=== PATIENT | male | born 1935 | race Caucasian/White ===

== ENCOUNTER 2017-04-11 07:30 | Inpatient (IN) | payer MEDICARE, OTHER ==
--- NOTE | 2017-04-27 11:30 | HP ---
AMENDED REPORT NOW INCLUDES COSIGNER DESIGNATION - ESIGNED BEFORE ADJUSTMENT PREOPERATIVE HISTORY AND PHYSICAL: DATE OF SURGERY: 05/09/17. DATE OF OFFICE VISIT: 04/26/17. ATTENDING PHYSICIAN: Dr. Sweetie Watson * (DICTATED BY MYA CHANCE) PROCEDURE: Right total shoulder reverse. CHIEF COMPLAINT: Right shoulder pain. HISTORY OF PRESENT ILLNESS: Baldemar is an 81-year-old male who presents to the clinic for right shoulder pain and limited range of motion due to severe osteoarthritis. He has failed conservative measures to include NSAIDs, physical therapy, and cortisone injection, he has therefore agreed to undergo a right total shoulder reverse with Dr. Watson on 05/09/17. PAST MEDICAL HISTORY: Hypertension, hyperlipidemia, hypothyroidism and GERD. PAST SURGICAL HISTORY: Left total hip arthroplasty about 5 years ago, L2, L3, L4, L5 surgical decompression, TURP, carpal tunnel release 3 times, left total shoulder arthroplasty, a strep and staph infection in the spine in 2001 and 2004 , and melena removal from the skin. MEDICATION: 1. Amoxicillin 500 mg 4 tabs 1 hour before dental work or invasive GI or procedures. 2. Omeprazole 20 mg 1 by mouth daily. 3. Losartan potassium 50 mg by mouth daily. 4. Hydrochlorothiazide 12.5 mg 1 by mouth daily. 5. Levothyroxine 150 mcg 1 by mouth daily. 6. Zocor 40 mg 1 by mouth every night at bedtime. 7. Nasonex 15 mcg spray, 2 sprays each nostril twice a day. 8. Propranolol HCl ER 120 mg 1 by mouth every day. 9. Flomax 0.4 mg 1 by mouth every day. 10. Arlene-D 12 Hour Allergy and Congestion 60/120 mg 1 by mouth as needed. 10. Oxycodone 5 mg 1 to 3 tabs every 4 to 6 hours as needed for pain. ALLERGIES: LISINOPRIL. FAMILY HISTORY: His father at 57 from coronary thrombosis; mother at 76 of unknown cause. SOCIAL HISTORY: He drinks 3 to 4 times per week. He denies smoking or illegal drug use. REVIEW OF SYSTEMS: A 14-point review of systems was reviewed with the patient. Positive for current complaint and GERD, otherwise negative. Denies fevers, chills, night sweats, chest pain, or shortness of breath. Denies history of bleeding disorder. Denies history of DVT or PE. PHYSICAL EXAMINATION GENERAL: An 81-year-old well-developed, well-nourished male, in no acute distress. Alert and oriented x3. Appropriate mood and affect. VITAL SIGNS: Height 70, weight 197, pulse 56, blood pressure 135/62, temperature 97.5, and BMI 28.3. HEENT: Normocephalic, atraumatic. PERRLA. Throat clear. NECK: Supple. PULMONARY: Lungs are clear to auscultation bilaterally. No wheezing, rhonchi, or rales. CARDIO: Regular rate and rhythm. S1 and S2. No murmurs, gallops, or rubs. No edema. ABDOMEN: Positive bowel sounds, soft, nontender. NEURO: Alert and oriented x3. Cranial nerves grossly intact. Sensation is intact to light touch. MUSCULOSKELETAL: Right upper extremity, forward flexion 120, abduction 110, external rotation 20, internal rotation is 10. +4 to 5 strength, pain with rotator cuff testing, +2 radial pulses. Sensation is intact to light touch distally. DIAGNOSTIC STUDIES: X-rays of the right shoulder revealed advanced bone-on- bone arthritis. IMPRESSION: Right shoulder severe osteoarthritis. PLAN: The patient is scheduled to undergo a right total shoulder reverse with Dr. Watson on 05/09/17. For pre-op planning, a CT of the right shoulder will be performed. He will return to office in 10 to 14 days postop for followup and suture removal. Percocet was sent to the patient's pharmacy for postop pain management. MYA CHANCE [id number]/[facility] #: [id number] MTDLissette
[2017-05-08] MEDS ORDERED: Buffered Lidocaine 0.9% SYRIN* 5 ML/SYR SYRINGE INTRADERM ONE (10:45)
[2017-05-09] MEDS ORDERED: Ondansetron INJ* 2 MG/ML VIAL IV PRN ×2 (05:37→10:23)
[2017-05-09] MEDS ORDERED: fentaNYL* 50 MCG/ML 2 ML VIAL (100 MCG VIAL) IV PRN (05:37)
[2017-05-09] MEDS ORDERED: PROCHLORPERAZINE INJ 5 MG/ML 2 ML VIAL IV PRN (05:37)
[2017-05-09] MEDS ORDERED: Morphine INJ* 2 MG/ML 1 ML CARPUJECT IV PRN (05:37)
[2017-05-09] MEDS ORDERED: oxyCODONE/Acetamin 5/325 MG* TAB PO PRN ×2 (05:37→10:23)
[2017-05-09] MEDS ORDERED: Famotidine IV* 10 MG/ML 2 ML (20 mg) IV ONE (06:00)
[2017-05-09] MEDS ORDERED: Buffered Lidocaine 0.9% SYRIN* 5 ML/SYR SYRINGE ONE (06:07)
[2017-05-09] MEDS ORDERED: Famotidine IV* 10 MG/ML 2 ML (20 mg) ONE (06:07)
[2017-05-09] MEDS ORDERED: ceFAZolin 2 GM PREMIX (*) 2 GM/50 ML BAG IVPB ONE (06:07)
[2017-05-09] MEDS ORDERED: fentaNYL* 50 MCG/ML 2 ML VIAL (100 MCG VIAL) ONE (06:57)
[2017-05-09] MEDS ORDERED: KETAMINE HCL* 50 MG/ML 10 ML VIAL ONE (06:58)
[2017-05-09] MEDS ORDERED: Atracurium* 10 MG/ML 10 ML VIAL ONE (06:58)
[2017-05-09] MEDS ORDERED: Midazolam* 1 MG/ML 2 ML VIAL (2 MG) ONE (06:58)
[2017-05-09] MEDS ORDERED: Ondansetron INJ* 2 MG/ML VIAL ONE (08:28)
[2017-05-09] MEDS ORDERED: Dexamethasone IV* 4 MG/ML 1 ML (4 MG) ONE (08:28)
[2017-05-09] MEDS ORDERED: EPHEDrine (Pressors)* 50 MG/ML VIAL ONE (08:28)
[2017-05-09] MEDS ORDERED: Lidocaine 2% PF * 5 ML VIAL ONE (08:28)
[2017-05-09] MEDS ORDERED: Bupivacaine 0.25% SDV* 30 ML ONE (08:28)
[2017-05-09] MEDS ORDERED: Phenylephrine INJ* 10 MG/ML 1 ML VIAL (10 MG) ONE (08:28)
[2017-05-09] MEDS ORDERED: Propofol* 10 MG/ML 20 ML BTL IV PUSH ONE (08:28)
[2017-05-09] MEDS ORDERED: Neostigmine Methylsulfate* 2 MG/2 ML SYRINGE ONE (09:54)
[2017-05-09] MEDS ORDERED: Glycopyrrolate IV* 0.2 MG/ML 1 ML VIAL ONE (09:54)
[2017-05-09] MEDS ORDERED: Bisacodyl SUPP* 10 MG SUPP PR PRN (10:23)
[2017-05-09] MEDS ORDERED: Polyethylene Glycol 3350* 17 GM PACKET PO PRN (10:23)
[2017-05-09] MEDS ORDERED: Acetaminophen TAB* 325 MG PO PRN (10:23)
[2017-05-09] MEDS ORDERED: Temazepam CAP* 15 MG PO PRN (10:23)
[2017-05-09] MEDS ORDERED: Magnesium Hydroxide LIQ* 30 ML UDC PO PRN (10:23)
[2017-05-09] MEDS ORDERED: Morphine INJ* 2 MG/ML 1 ML SYRINGE (TWO MG - NEW SYRINGE VERSION) IV PRN (10:23)
[2017-05-09] MEDS ORDERED: oxyCODONE TAB* 5 MG TAB PO PRN (10:23)
[2017-05-09] MEDS ORDERED: diPHENhydraMINE IV* 50 MG/ML 1 ml VIAL (BENADRYL) IV PRN (10:23)
[2017-05-09] MEDS ORDERED: Fluticasone NASAL SPRAY 50MCG* 16 gm SPRAY BTL BOTH NARES PRN (10:30)
--- NOTE | 2017-05-09 11:00 | RAD ---
Indication: Right shoulder pain. 3 views of the right shoulder demonstrates bipolar right glenohumeral joint arthroplasty in satisfactory position. A small amount of air is noted. This is subcutaneous in nature. IMPRESSION: Bipolar right shoulder arthroplasty. No loosening is noted.
[2017-05-09] MEDS: ceFAZolin 1 GM VIAL(*) 1 GM in NS 0.9% 50 ML* 50 ML IVPB SCH (16:34)
[2017-05-09] MEDS ORDERED: Atorvastatin* 20 MG TAB PO SCH (17:00)
[2017-05-09] MEDS ORDERED: Tamsulosin CAP* 0.4 MG PO SCH (21:00)
[2017-05-10] MEDS: ceFAZolin 1 GM VIAL(*) 1 GM in NS 0.9% 50 ML* 50 ML IVPB SCH ×2 (00:08→08:07)
[2017-05-10] MEDS: oxyCODONE/Acetamin 5/325 MG* TAB PO PRN ×2 (04:42→09:12)
[2017-05-10 05:58] LABS: Hematocrit 38 % (42-52); Hemoglobin 13.3 g/dl (14.0-18.0)
[2017-05-10] MEDS ORDERED: Levothyroxine TAB* 150 MCG TAB PO SCH (06:00)
[2017-05-10 06:13] LABS: BUN/Creatinine Ratio 14.9 (8-20); Calcium 8.8 mg/dL (8.6-10.3); EGFR African American 79.3 (>60); EGFR Non-African American 61.7 (>60); Potassium 4.2 mmol/L (3.5-5.0)
[2017-05-10] MEDS ORDERED: Omeprazole CAP* 20 MG PO SCH (07:30)
[2017-05-10 08:01] VITALS: BP 147/73
[2017-05-10] MEDS ORDERED: Losartan TAB* 25 MG PO SCH (09:00)
[2017-05-10] MEDS ORDERED: Hydrochlorothiazide TAB* 25 MG PO SCH (09:00)
[2017-05-10] MEDS ORDERED: Folic Acid TAB* 1 MG PO SCH (09:00)
[2017-05-10] MEDS ORDERED: Propranolol LA CAP* 120 MG PO SCH (09:00)
[2017-05-10] MEDS ORDERED: Cyanocobalamin TAB* 500 MCG PO SCH (09:00)
[2017-05-10] MEDS ORDERED: Enoxaparin(*) 40 MG/0.4 ML SYR SUBCUT SCH (11:00)
--- NOTE | 2017-05-10 11:33 | PN ---
Progress Note - Progress Note Date of Service: 05/10/17 SOAP: Subjective: []Patient seen OOB in chair. Sling donned on right shoulder. Doing well, pain well managed. Ready to go home today. Denies SOB, CP or dizziness. Objective: [] Vital Signs Temp 98.1 F 05/10/17 07:45 Pulse 81 05/10/17 07:45 Resp 18 05/10/17 09:12 BP 147/73 05/10/17 07:45 Pulse Ox 96 05/10/17 08:00 Intake & Output 05/09/17 05/10/17 05/10/17 18:59 06:59 18:59 Intake Total 414 1271 1377 Output Total 1050 2100 325 Balance -636 -829 1052 Intake: IV Fluids 414 731 997 ABX - CEFAZOLIN 142 LR 364 589 997 NS 50ML, Cefazolin 2G 50 IVPB 60 ABX - CEFAZOLIN 60 Oral 540 320 Output: Hemovac Amount #1 300 150 125 Urine 750 1950 200 Other: Estimated Void Medium Other Amount Description These numbers confirmed via telephone by Regina Acuna # Voids 1 Laboratory Results - last 24 hr 05/10/17 05/10/17 05:34 05:34 Hgb 13.3 L Hct 38 L Sodium 135 Potassium 4.2 Chloride 103 Carbon Dioxide 25 Anion Gap 7 BUN 17 Creatinine 1.14 Est GFR ( Amer) 79.3 Est GFR (Non-Af Amer) 61.7 BUN/Creatinine Ratio 14.9 Glucose 126 H Calcium 8.8 Right shoulder hemovac came apart and end clamped by nursing staff, ~150 cc in hemovac this morning neuro intact distally, 2+ radial pulse, excellent finger motion and full sensation and medical practice manager strength, no edema dressings are dry, hemovac tube pulled without difficulty, tip intact new tegaderm applied at drain site Assessment: []s/p right reverse total shoulder replacement POD #1 Plan: []Home today May shower tomorrow Has Rx of [place] for pain already called into [facility] Follow up with Dr. Watson in 10- 14 days
--- NOTE | 2017-05-10 12:52 | PN ---
Progress Note - Progress Note Date of Service: 05/10/17 Note: pt seen and examined at 6:20 am denies sob.cp. some discomfort in shoulder. sling in place. drain in place. denies numbness/tingling Temp Pulse Resp BP Pulse Ox 98.1 F 81 18 147/73 96 05/10/17 07:45 05/10/17 07:45 05/10/17 09:12 05/10/17 07:45 05/10/17 08:[address]. sling in place. SILT grossly distally. 2+ PT pulse Laboratory Results - last 24 hr 05/10/17 05/10/17 05:34 05:34 Hgb 13.3 L Hct 38 L Sodium 135 Potassium 4.2 Chloride 103 Carbon Dioxide 25 Anion Gap 7 BUN 17 Creatinine 1.14 Est GFR ( Amer) 79.3 Est GFR (Non-Af Amer) 61.7 BUN/Creatinine Ratio 14.9 Glucose 126 H Calcium 8.8 A/P POD#1 from R reverse shoulder arthroplasty doing well sling for 6 weeks. no active ROM passive ROM only cont iv abx for 24 hours post op. drain to be d/c'd today home if pain controlled
--- NOTE | 2017-05-11 02:35 | DS ---
AMENDED REPORT NOW INCLUDES COSIGNER DESIGNATION - ESIGNED BEFORE ADJUSTMENT DISCHARGE SUMMARY: ADMISSION DATE: 05/09/17 DATE OF SURGERY: 05/09/17 DISCHARGE DATE: 05/10/17 ATTENDING PHYSICIAN: Dr. Watson * (DICTATED BY MYA LEMUS) STRAIGHT KNIFE CUTTER MACHINE: MYA Glasgow PROCEDURE: Right total shoulder, reverse. HISTORY: Baldemar is an 81-year-old male who present to the clinic with right shoulder pain and limited range of motion due to severe osteoarthritis. He has failed conservative measures to include NSAIDs, physical therapy, and cortisone injection. He therefore agreed to undergo a right total shoulder reverse, with Dr. Watson on 05/09/17. HOSPITAL COURSE: Mr. Bose was admitted to on . He underwent a right total shoulder reverse. Postoperatively, he recovered in the short stay unit. On postop day 1, he was advanced to regular diet. Pain was well controlled with Percocet and he was restarted on his home medications. Labs and vital signs remained stable throughout his stay. He advanced appropriately with physical therapy and occupational therapy. On postop day 1, he was orthopedically and medically stable for discharge home. PHYSICAL EXAMINATION: General: The patient is noted to be calm and cooperative , in no acute distress. He is alert and oriented. Vital Signs: On the day of discharge, temperature 98.1 Fahrenheit, pulse 81, respiratory rate 16, oxygen saturation 96%, blood pressure 147/73. Examination of the right shoulder: patient is neurologically intact distally, has 2+ radial pulse, excellent finger motion and full sensation and behavior management specialist strength. No edema. Dressings are dry. Hemovac tube pulled without difficulty, tip intact. New Tegaderm was applied at drain site. This morning the Hemovac came part and was clamped by nursing staff. LABORATORY DATA: Lab data on the day of discharge, hemoglobin is 13.3, hematocrit is 38. DISCHARGE MEDICATIONS: 1. Losartan 50 mg q.a.m. 2. Folic acid 1 mg q.a.m. 3. Vitamin B12 tablet 500 mcg, take 1000 mcg q.a.m. 4. Hydrochlorothiazide 25 mg tablet, take 12.5 mg q.a.m. 5. Simvastatin 40 mg daily. 6. Propranolol LA 120 mg q.a.m. 7. Omeprazole 20 mg p.o. q.a.m. 8. Levothyroxine 150 mcg daily. 9. Naproxen 500 mg b.i.d. p.r.n. 10. Acetaminophen 500 mg p.o. t.i.d. p.r.n. 11. Tamsulosin 0.4 mg q.h.s. 12. Multivitamin 1 tablet q.a.m. 13. Nasonex 1 spray each naris once daily p.r.n. 14. Cholecalciferol 1 cap p.o. q.a.m. CONDITION ON DISCHARGE: Stable. DISCHARGE INSTRUCTIONS: Mr. Bose is an 81-year-old male postop day 1 status post right reverse total shoulder replacement, which was uncomplicated. He is orthopedically and medically stable. Discharged to home. Labs and vital signs are stable. He will restart home medications. Shoulder immobilizer is to be worn at all times, may remove for showering. May shower post op day 3. No active range of motion. Follow up with Dr. Watson within 10 to 14 days. The patient is instructed to go immediately to the ER should he develop any chest pain or shortness of breath. Should he develop fever, increasing pain or increased redness, he should call the office immediately. MYA LEMUS [id number]/[facility] #: [id number] MTDD
--- NOTE | 2017-05-11 13:56 | PN ---
Progress Note - Progress Note Date of Service: 05/11/17 Note: Of note, Called patient to ensure he was aware that no active ROM of shoulder is permitted as this information differed from printed discharge summary. He was made aware prior to leaving hospital and will continue to keep shoulder immobilized with no active ROM
--- NOTE | 2017-05-13 02:05 | OP ---
CC: PCP OPERATIVE REPORT: DATE OF OPERATION: 05/09/17 DATE OF : 35 SURGEON: Sweetie Watson MD ASSISTANTS: MYA Glasgow as well as MYA Kwon ANESTHESIOLOGIST: Dr. Merino. ANESTHESIA: General interscalene block. 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 OPERATIVE PROCEDURES: 1. Right shoulder reverse arthroplasty. 2. Open biceps tenodesis. COMPLICATIONS: None. ESTIMATED BLOOD LOSS: 200 cc. OUTPUT: One intraarticular drain. IMPLANTS USED: Aequalis Flex stem size 3B, size 25 x 30 base plate, threaded base plate was size 36 head and +6 mm poly spacer. INDICATIONS: Baldemar Bose is an 81-year-old gentleman who has advanced osteoarthritis of his shoulder. He had a previous reverse on the contralateral side about a year ago, which he did very well with and he has reached maximum medical improvement. He has failed conservative management, has persistent pain of the shoulder with difficulty doing activities of daily living. After extensive discussion on risks and benefits of surgery versus nonoperative treatment, he elected to proceed with operative treatment. Risks were reviewed with the patient and include, but are not limited to bleeding, infection, damage to nerves, vessels, surrounding structures, wound nonhealing, persistent pain, need for surgery, scarring, stiffness, incomplete relief of symptoms, risk of anesthesia, risk of DVT as well as risk of dislocation and fracture, he has elected to proceed. DESCRIPTION OF PROCEDURE: The patient was greeted in the preoperative area by the attending surgeon. Correct extremity was marked, consent was confirmed. The patient then underwent interscalene nerve block by the anesthesiologist in the preoperative area block room. The patient was then brought back to the operating suite where he was placed in a supine position on the operating room table. He then underwent general anesthesia with endotracheal intubation, after which he was appropriately positioned in lazy beach chair position with all bony prominences padded. He was well secured to table. The right shoulder was then prepped and draped in usual sterile fashion beginning with chlorhexidine soap, scrub and alcohol wipe and final prep with ChloraPrep. After appropriate surgical pause indicating side and site of procedure, and administration of antibiotics, a deltopectoral incision was then made carefully using the #15 blade. The soft tissues were carefully dissected for flap closure and to expose the cephalic vein, which was identified and then taken laterally with deltoid. The Hohmann was then placed under the coracoid, the clavipectoral fascia was identified, then incised. The lateral aspect of the short head of the biceps were identified and the fascia was carefully released and soft tissues adhesions anterior to the subscap was then carefully removed. The pec was identified distally at its insertion, the proximal centimeter was then carefully released with the Bovie. The biceps was then tenodesed with a heavy nonabsorbable suture. It was tenotomized proximal to that, biceps was then followed into the joint to expose the subscap. The subscap was then removed in a peel type fashion and then tagged with a #5 Ethibond for traction and the remainder of the subscap as well as capsular release off the humeral head. There was a moderate to large osteophyte that was identified. As the head was gently externally rotated and dislocated, the osteophyte was identified and removed using osteotome and rongeurs. The head was exposed. There were grade 4 changes to the head as well as the glenoid. Once the head and neck were exposed, the provisional cut was drawn using an electrocautery device. The saw was then used to freehand a head and neck cut. The head was then placed in the back table and given off to pathology per policy. The canal finder was then used to find the canal down the humerus. The sizing broaches were then placed and a size 3 was found to be appropriate, as a sizing guide was placed to be about around size 3. The broaching then began with the smallest broach and then advanced to about a size of 3B. This was found to have excellent fit with good bony purchase. The reamer was then used to remove any excess bone, the protection plate was placed and attention was directed to the glenoid. There was abundant synovitis about the glenoid and the labrum was identified. The superior anterior labrum were removed using electrocautery device. The superior glenohumeral and middle glenohumeral ligament was also removed from subscap using a curved Munoz. The inferior glenohumeral ligament was released under under tension with care to preserve and protect the axillary nerve, which was near. Once the subscap was mobilized and anterior neck retractor was placed to further expose the glenoid further, remainder of the labrum was removed. The inferior labrum was removed using electrocautery device using the needle tip Bovie. Once this was done, the size 25 mm guide was then placed in the inferior portion of the glenoid and then the guidewire was then placed in the inferior aspect of the glenoid with about 10 to 11 mm in the inferior lip of the glenoid. The face reamer was then placed carefully and reamed to remove any cartilage of its remaining as well as exposing the subchondral bone. The footprint reamer for the 36 mm head was then placed and then that was also reamed by hand. The wound was then irrigated to remove any loose debris. A size 8 mm cannulated drill bit was then drilled and the 6.5 mm drill was then used to drill to the length of the glenoid, it was found to be about 30 mm. The screw hole was then tapped and the appropriate baseplate final implant was then secured into place with excellent purchase. The 3 interlocking screws were then placed superior, inferior as well as anteriorly with excellent purchase. The glenosphere was then impacted and positioned and then secured with the set screw. At this point, attention was directed to the humerus. The protection plate was removed. The right arm was placed on the stem and checked for good purchase once again and to make sure there was excellent purchase, the trial centered tray with the 6 mm poly was then placed and the shoulder was then provisionally reduced. It was found to have good motion with forward flexion to about 145, abduction to 90, external rotation to about 45 with appropriate amount of shuck and subscap tension was checked as well to make sure this was appropriate, deltoid tension was appropriate as well. The shoulder was then carefully dislocated. The final implants were prepared on the back table by the attending surgeon. The trial implants were removed. The final implant was prepared on the back table by the attending surgeon. A small drill was used to drill into the shaft of the humerus to place #5 Ethibond sutures for subscap repair. After placement of the final implant, the final implant was then impacted into position and reduced and again taken to the range of motion, which is found to be the same as the trial. The wounds were copiously irrigated with sterile saline. The subscap was closed with previously passed sutures, they were passed in horizontal mattress configuration and allowed for closure of the subscap. Shoulder was taken through external rotation, found to be about 40 degrees of external rotation. Wound was copiously irrigated again. An intraarticular drain was then placed, irrigated once more and the deltopectoral fascia was closed with #2 nonabsorbable Ethibond. The wound was irrigated one more time and the skin was closed in layers with 2-0 Vicryl for subcutaneous tissues and 3-0 Monocryl. Sterile dressings were applied as well as a sling and a Cryo/Cuff. He was awoken anesthesia and transferred to PACU in stable condition. POSTOPERATIVE PLAN: He will be nonweightbearing for 6 weeks. He will be in a sling during that time. He will have passive motion, forward flexion to 90, abduction to 90, external rotation to about 30 degrees. He will be admitted overnight and drain will be pulled tomorrow. He will receive 24 hours of postoperative antibiotics. DVT prophylaxis will be in house, but he will be discharged without any DVT prophylaxis due to no previous personal or family history. I will see the patient back in 10 to 14 days. [id number]/[facility] #: [id number] ZAHRA
== END 2017-05-10 12:44 | disposition home or self-care (01) | DRG 483 ==
LOC: AA 05-09 06:19 → SSU 05-09 11:45
PROVIDERS: ADMIT Orthopaedic Surgery; ATTEND Orthopaedic Surgery
PROC: 0RRJ00Z Replacement of Right Shoulder Joint with Reverse Ball and Socket Synthetic Substitute, Open Approach (ICD-10-PCS; principal; 2017-05-09 07:30)
DX: M19.011 Primary osteoarthritis, right shoulder (principal); E03.9 Hypothyroidism, unspecified; E78.5 Hyperlipidemia, unspecified; I10 Essential (primary) hypertension; K21.9 Gastro-esophageal reflux disease without esophagitis; Z96.642 Presence of left artificial hip joint; N40.0 Benign prostatic hyperplasia without lower urinary tract symptoms; Z96.612 Presence of left artificial shoulder joint; Z85.820 Personal history of malignant melanoma of skin; Z88.8 Allergy status to other drugs, medicaments and biological substances; Z82.49 Family history of ischemic heart disease and other diseases of the circulatory system; Z72.89 Other problems related to lifestyle
CPT/HCPCS: 36415; 80048; 85014; 85018; 86850; 86900; 86901; 87070; 87205; 87640; 87641; A9270-GY; C1713; C1776; J0690; J1100; J1650; J2250; J2270; J2405; J2704; J3010

== ENCOUNTER 2017-10-31 06:59 | Inpatient (IN) | payer MEDICARE, OTHER ==
[~2017-10-31 06:59] MED LIST: Buffered Lidocaine 0.9% SYRIN* 5 ML/SYR SYRINGE INTRADERM ONE
[2017-10-31] MEDS ORDERED: Buffered Lidocaine 0.9% SYRIN* 5 ML/SYR SYRINGE ONE (07:04)
[2017-10-31] MEDS ORDERED: ceFAZolin 2 GM PREMIX (*) 2 GM/50 ML BAG IVPB ONE (07:04)
[2017-10-31] MEDS ORDERED: Midazolam* 1 MG/ML 2 ML VIAL (2 MG) ONE (08:26)
[2017-10-31] MEDS ORDERED: fentaNYL* 50 MCG/ML 2 ML VIAL (100 MCG VIAL) ONE ×2 (08:26→10:35)
[2017-10-31] MEDS ORDERED: ROPIVACAINE 5 MG/ML 30 ML BTL (0.5%) ONE (08:31)
[2017-10-31] MEDS ORDERED: Ondansetron INJ* 2 MG/ML VIAL ONE (08:56)
[2017-10-31] MEDS ORDERED: Propofol* 10 MG/ML 20 ML BTL IV PUSH ONE (08:56)
[2017-10-31] MEDS ORDERED: Dexamethasone IV* 4 MG/ML 1 ML (4 MG) ONE (08:56)
[2017-10-31] MEDS ORDERED: Glycopyrrolate IV* 0.2 MG/ML 1 ML VIAL ONE (09:48)
[2017-10-31] MEDS ORDERED: EPHEDrine (Pressors)* 50 MG/ML VIAL ONE ×2 (09:48→10:22)
[2017-10-31] MEDS ORDERED: Bupivacaine 0.25% SDV* 30 ML ONE (11:36)
[2017-10-31] MEDS ORDERED: diPHENhydraMINE IV* 50 MG/ML 1 ml VIAL (BENADRYL) IV PRN (11:51)
[2017-10-31] MEDS ORDERED: Morphine VIAL* 4 MG/ML VIAL (1 ml vial) IV PRN (11:51)
[2017-10-31] MEDS ORDERED: Cyclobenzaprine TAB* 10 MG PO PRN (11:51)
[2017-10-31] MEDS ORDERED: oxyCODONE TAB* 5 MG TAB PO PRN (11:51)
[2017-10-31] MEDS ORDERED: Magnesium Hydroxide LIQ* 30 ML UDC PO PRN (11:51)
[2017-10-31] MEDS ORDERED: fentaNYL* 50 MCG/ML 2 ML VIAL (100 MCG VIAL) IV PRN (11:55)
[2017-10-31] MEDS ORDERED: Naloxone* 0.4 MG/ML 1 ML VIAL IV PRN (11:55)
[2017-10-31] MEDS ORDERED: HYDROmorphone INJ* 1 MG/ML CARPUJECT SYRINGE IV PRN (11:55)
[2017-10-31] MEDS ORDERED: HYDROmorphone INJ* 2 MG/ML CARPUJECT SYRINGE ONE (12:35)
--- NOTE | 2017-10-31 13:46 | RAD ---
INDICATION: Right total knee replacement COMPARISON: July 20, 2017 TECHNIQUE: Portable AP and crosstable lateral views were obtained. FINDINGS: There is right knee arthroplasty. Both femoral and tibial components appear well seated. There are soft tissue changes compatible with recent surgery to include anterior skin christine. There is no overlying cooling jacket. There are vascular calcifications. IMPRESSION: POSTOPERATIVE RIGHT KNEE ARTHROPLASTY.
[2017-10-31] MEDS: oxyCODONE/Acetamin 5/325 MG* TAB PO PRN ×3 (14:23→19:58)
[2017-10-31] MEDS: Tamsulosin CAP* 0.4 MG PO SCH (17:54)
[2017-10-31] MEDS: ceFAZolin 1 GM in Dextrose (*) 1 GM/50 ML BAG IVPB SCH (17:54)
[2017-10-31] MEDS: Atorvastatin* 20 MG TAB PO SCH (17:54)
[2017-10-31] MEDS: Magnesium Hydroxide LIQ* 30 ML UDC PO SCH (19:59)
[2017-10-31] MEDS: Docusate CAP* 100 MG PO SCH (20:06)
--- NOTE | 2017-11-01 00:06 | OP ---
DATE OF OPERATION: 10/31/17 - ROOM #341 DATE OF : 35 SURGEON: Jermaine Andersen MD CARDIOGRAPHER: MYA Rivera. A physician events and promotions assistant was required for the length of the procedure for positioning, retraction, closure and assistance. ANESTHESIOLOGIST: Dr. Tara Pittman. ANESTHESIA: General anesthesia, regional adductor block anesthesia, local anesthesia consisting of approximately 10 cc of 0.25 Marcaine without epinephrine in the subcutaneous tissues about the skin incision. PRE-OP DIAGNOSIS: Right knee osteoarthritis. POST-OP DIAGNOSIS: Right knee osteoarthritis. OPERATIVE PROCEDURE: Right total knee arthroplasty. IV FLUIDS: 2100 cc of crystalloid. ANTIBIOTICS: Ancef 2 g IV. URINE OUTPUT: 600 cc. ESTIMATED BLOOD LOSS: Approximately 400 cc. TOURNIQUET TIME: 120 minutes at 350 mmHg. SKIN TO SKIN TIME: 130 minutes. SPECIMEN: Bone cuts sent to pathology. IMPLANTS: DePuy, Wild and Wild Attune, cruciate retaining cemented implants. Femoral implant size 7, tibial implant size 5, fixed bearing, patellar size 38 mm, implant size 5 mm. Cement Lorenzo Palacos. COMPLICATIONS: None. INDICATIONS: The patient is an 81-year-old man with a long history of pain and osteoarthritis of the right knee, insufficiently responsive to a full spectrum of nonoperative management who opted for surgery. I discussed risks and potential complications of surgery including bleeding, infection, nerve or blood vessel injury, knee pain, stiffness, need for revision, blood clot. DESCRIPTION OF PROCEDURE: In the preoperative holding, the patient signed a written consent. The operative extremity was marked in the preoperative holding. The patient was taken back to the operating room and placed supine on the operating room table. Dr. Pittman performed an adductor block in the right lower extremity after a time-out was performed. General anesthesia was induced. The patient was switched to an appropriate operative room table. A tourniquet was placed around the right proximal thigh, but not yet inflated. A lateral post was placed along the bed. The right lower extremity was prepped with chlorhexidine and then ChloraPrep. Draping was performed. Ioban was laid over the skin. Gloves were changed by surgeon and physician events and promotions assistant. A surgical time-out was performed. Esmarch was applied and tourniquet was elevated to 300 mmHg. A midline longitudinal skin incision was made from 4 fingerbreadths proximal to the proximal pole of the patella to the distal end of the tibial tubercle. Dissection was continued down to the extensor mechanism. Much bleeding was encountered, just generalized oozing throughout the leg. I made medial parapatellar arthrotomy with the knee in approximately 80 degrees of flexion. Bleeding continued. Hemostasis was obtained with Bovie electrocautery. Tourniquet was dropped and the bleeding essentially did not change, so this was not homogenous tourniquet. We reapplied the Esmarch more tightly and elevated the tourniquet to 350 mmHg. This stopped the oozing and we had a much clear field. I continued the medial parapatellar arthrotomy through the anterior horn of the medial meniscus. I extended the knee. I peeled the anterior capsule off the medial tibial plateau and lateral tibial plateau. I removed much of the fat deep to the patellar tendon and debrided some osteophytes from the undersurface of the patella. The patella everted comfortably. I removed some synovitis from the suprapatellar pouch with Bovie electrocautery. Hemostased any bleeding. I released some lateral patellofemoral ligament. Patella was everted safely. I flexed the knee to 90 degrees with the patella everted. I released ACL and debrided ACL stumps. I used a drill to open the femoral canal, set on ream . I placed a distal femoral cutting guide set to 9 mm and 5 degrees of valgus. I placed pins and made a distal femoral cut with oscillating saw. Next, I sized the femur. Initially, I made a cut with a four-in-one guide, anterior cut for a size 8. I next to get a better fit, applied the size 7 cutting guide with it shifted anterior 1.5 mm. That was a perfect cut anteriorly and I liked that fit from medial to lateral. I placed the additional two screws locking from medial and lateral. I then made my anterior chamfer and posterior chamfer cuts. I removed the instrumentation. I removed the anterior chamfer bone cut for use of plugging the femoral canal later in the case. I removed some bone about the medial most and lateral most aspect of the condyles with a rongeur. Next, I placed external alignment cutting guide for the tibia. I noted that there was not more wear in one compartment over the other, medial and lateral tibial plateau. I measured the knee preoperatively to be in 6 degrees of valgus coronally anatomic. My initial plan was to take 6 mm off the medial side. As I lined that up, I did not like that cut, I thought it would be too much. Therefore instead, I took 2 mm off the medial tibial plateau. This cut ended up being perfect as my high side, the lateral side was measured to be 10 mm while the low side 2 mm. I removed the instrumentation. I placed laminar spreaders and removed medial and lateral menisci with Bovie electrocautery. I removed some posterior femoral condyle both medially and laterally with curved osteotomes. I next placed dog bone spacers. I placed a 6 mm spacer. It showed that I had symmetric cuts for knee flexion and extension and I liked the fit with the 6 mm dog bone spacer, exactly as I prefer. I placed a femoral trial and drilled through it into each condyle. I floated a tibial trial and liked where I wanted to fit facing anteriorly the middle third of the tibial tubercle. A retractor was placed and I measured the tibia to be a size 5. I pinned the tibial guide, reamed the tibia and then tamped it. Instruments were removed. I directed my attention to the patella with the knee in full extension. I measured the patella to be 20 mm in depth. The patella had a narrow distal tail noted. I used an oscillating saw, free hand technique to cut it to a depth of 13 mm. I sized the patella to a 38. I drilled it. I placed a trial button and I rongeured some lateral most patella. Irrigation. My gloves were changed. Palacos cement was mixed. Cement was applied and the implants were placed, tibia and then femur. A trial 6 mm insert was placed. Then patella was cemented. I allowed the cement to harden. I removed excess cement. I trialed the knee with a trial 5 mm insert. I liked my tension and my range of motion was 0 to 130 degrees of flexion. Final polyethylene insert was placed. Irrigation. The medial parapatellar arthrotomy was closed with figure- of-eight stitches. The first two stitches were using Ethibond 0. The remaining were using Vicryl 0 suture. I then closed the subcutaneous tissue with buried simples stitches using Vicryl 2-0 suture. Closure of the skin with christine. 10 cc of 0.25 Marcaine without epinephrine was placed in the subcutaneous tissue about the surgical incision. Xeroform, 4x4, ABD, sterile Webril and then some nonsterile Webril. Aramis bandage from foot to proximal thigh. The tourniquet was let down. A cooling unit was placed on the right knee. A cooling unit is medically necessary to reduce inflammation and reduce pain and allow the patient to move the knee more sooner to prevent stiffness. The patient was awakened, extubated and brought to the PACU. DISPOSITION: The patient will be admitted postoperatively for pain control, IV antibiotics, physical therapy and medical management and advancement of diet. The patient will be on Eliquis anticoagulation for 4 weeks postoperatively to start on postoperative day #1 in the morning. He will have pain control with oral and IV narcotics. He will have three doses of Ancef 1 g IV q.8 hours postoperatively. He will be weightbearing as tolerated and will begin aggressive physical therapy on postoperative day #1 in the morning if not sooner. Disposition planning will begin immediately. We will follow the patient's hemoglobin and other labs and vitals. [id number]/[facility] #: [id number] ZAHRA
[2017-11-01] MEDS: ceFAZolin 1 GM in Dextrose (*) 1 GM/50 ML BAG IVPB SCH ×2 (00:41→09:03)
[2017-11-01] MEDS: oxyCODONE/Acetamin 5/325 MG* TAB PO PRN ×4 (01:54→19:14)
[2017-11-01 05:33] LABS: Hematocrit 30 % (42-52); Hemoglobin 10.8 g/dl (14.0-18.0); Mean Platelet Volume 7.4 um3 (7.4-10.4); Platelet Count 168 10^3/ul (150-450)
[2017-11-01 05:55] LABS: EGFR Non-African American 67.1 (>60)
[2017-11-01] MEDS: Levothyroxine TAB* 150 MCG TAB PO SCH (05:58)
[2017-11-01] MEDS ORDERED: Losartan TAB* 25 MG PO SCH (09:00)
[2017-11-01] MEDS ORDERED: Propranolol LA CAP* 120 MG PO SCH (09:00)
[2017-11-01] MEDS ORDERED: Apixaban* 5 MG TAB PO SCH (09:00)
[2017-11-01] MEDS: Vitamin THERAPEUTIC TAB PO SCH (09:04)
[2017-11-01] MEDS: Magnesium Hydroxide LIQ* 30 ML UDC PO SCH ×2 (09:04→19:15)
[2017-11-01] MEDS: Hydrochlorothiazide TAB* 25 MG PO SCH (09:04)
[2017-11-01] MEDS: Omeprazole CAP* 20 MG PO SCH (09:04)
[2017-11-01] MEDS: Docusate CAP* 100 MG PO SCH ×2 (09:04→19:14)
[2017-11-01] MEDS ORDERED: diPHENhydraMINE PO* 25 MG PO PRN (12:51)
--- NOTE | 2017-11-01 12:54 | PN ---
Progress Note - Progress Note Date of Service: 11/01/17 SOAP: Subjective: []Patient seen at bedside POD 1 s/p right total knee replacement. His pain is well controlled and he denies chest pain, shortness of breath, dizziness, nausea. Objective: [] Vital Signs Temp 98.2 F 11/01/17 11:36 Pulse 79 11/01/17 11:36 Resp 16 11/01/17 11:36 BP 109/51 11/01/17 11:36 Pulse Ox 96 11/01/17 11:36 Intake & Output 10/31/17 11/01/17 11/01/17 18:59 06:59 18:59 Intake Total 2765 1765 Output Total 675 1600 400 Balance 2090 165 -400 Weight 205 lb 6.4 oz Intake: IV Fluids 2200 816 LR 2200 816 IVPB 109 ABX - CEFAZOLIN 109 Oral 565 840 Output: Urine 200 Siddiqi 225 1600 200 Estimated Blood Loss 450 Laboratory Last Values Hgb 10.8 g/dl (14.0-18.0) L 11/01/17 05:23 Hct 30 % (42-52) L 11/01/17 05:23 Plt Count 168 10^3/ul (150-450) 11/01/17 05:23 MPV 7.4 um3 (7.4-10.4) 11/01/17 05:23 Sodium 133 mmol/L (139-145) L 11/01/17 05:23 Potassium 4.3 mmol/L (3.5-5.0) 11/01/17 05:23 Chloride 99 mmol/L (101-111) L 11/01/17 05:23 Carbon Dioxide 28 mmol/L (22-32) 11/01/17 05:23 Anion Gap 6 mmol/L (2-11) 11/01/17 05:23 BUN 15 mg/dL (6-24) 11/01/17 05:23 Creatinine 1.06 mg/dL (0.67-1.17) 11/01/17 05:23 Est GFR ( Amer) 86.2 (>60) 11/01/17 05:23 Est GFR (Non-Af Amer) 67.1 (>60) 11/01/17 05:23 BUN/Creatinine Ratio 14.2 (8-20) 11/01/17 05:23 Glucose 150 mg/dL (70-100) H 11/01/17 05:23 Calcium 8.2 mg/dL (8.6-10.3) L 11/01/17 05:23 General: well appearing, NAD RLE: Dressing CDI with no erythema proximal or distal. DF/PF intact. Sensation intact to light touch distally. 2+ DP/PT pulse and capillary refill less than two seconds. BL LE: Calves supple and nontender without erythema, edema or palpable cords. Assessment: []POD 1 sp right total knee replacement Plan: []WBAT PT/OT Eliquis 2.5 mg po BID for DVT prophylaxis Plan for DC home tomorrow
[2017-11-01] MEDS: Atorvastatin* 20 MG TAB PO SCH (17:46)
[2017-11-01] MEDS: Tamsulosin CAP* 0.4 MG PO SCH (17:46)
[2017-11-01] MEDS: Ondansetron INJ* 2 MG/ML VIAL IV PRN (17:48)
[2017-11-01] MEDS: Apixaban* 2.5 MG TAB PO SCH (20:09)
[2017-11-02] MEDS: oxyCODONE/Acetamin 5/325 MG* TAB PO PRN (05:05)
[2017-11-02] MEDS: Ondansetron INJ* 2 MG/ML VIAL IV PRN (05:08)
[2017-11-02] MEDS: Levothyroxine TAB* 150 MCG TAB PO SCH (05:12)
[2017-11-02 05:40] LABS: Hematocrit 27 % (42-52); Hemoglobin 9.8 g/dl (14.0-18.0); Mean Platelet Volume 7.7 um3 (7.4-10.4); Platelet Count 168 10^3/ul (150-450)
[2017-11-02] MEDS: Propranolol LA CAP* 120 MG PO SCH (09:04)
[2017-11-02] MEDS: Losartan TAB* 25 MG PO SCH (09:04)
[2017-11-02] MEDS: Apixaban* 2.5 MG TAB PO SCH ×2 (09:35→21:06)
[2017-11-02] MEDS: Vitamin THERAPEUTIC TAB PO SCH (09:36)
[2017-11-02] MEDS: Hydrochlorothiazide TAB* 25 MG PO SCH (09:36)
[2017-11-02] MEDS: Magnesium Hydroxide LIQ* 30 ML UDC PO SCH ×2 (09:37→21:05)
[2017-11-02] MEDS: Docusate CAP* 100 MG PO SCH ×2 (09:37→21:05)
[2017-11-02] MEDS: Omeprazole CAP* 20 MG PO SCH (09:41)
--- NOTE | 2017-11-02 12:15 | PN ---
Progress Note - Progress Note Date of Service: 11/02/17 SOAP: Subjective: 82 y/o male s/p R TKA by DR. Andersen 10/31. Patient mentally not as clear, states slept poorly last night. No SOB, chest complaints. VSS, BP soft, afebrile overnight. Objective: General- Well appearing, NAD, AO sitting in chair comfortably, fatigued appearing. MSK- RLE- DF/PF = b/l, PT 2+, negative homans sign, dressing removed- I c/d/i, no drainage, odor noted, sutures intact. new dressing placed, SITLT. Vital Signs Temp 97.6 F 11/02/17 11:24 Pulse 69 11/02/17 11:24 Resp 16 11/02/17 11:24 BP 105/43 11/02/17 11:24 Pulse Ox 98 11/02/17 11:24 Intake & Output 11/01/17 11/02/17 11/02/17 18:59 06:59 18:59 Intake Total 600 1900 Output Total 625 300 Balance -25 1600 Intake: Oral 600 1900 Output: Urine 425 300 Siddiqi 200 Other: Estimated Void Medium # Bowel Movements 0 # Voids 1 Assessment: Stable 82 y/o male s/p R TKA by Dr. Andersen 10/31. Plan: - DVT prophylaxis- Eliquis - Continue PT/ OT - Follow up with Dr. Andersen within 10-14 days - H&H - stable - post-op IV ABX - Completed - BP soft- HOLD parameters placed - Encourage PO intake - POssible D/C this afternoon if does well with PT <Sandy Banks - Last Filed: 11/02/17 12:16> - Progress Note SOAP: Subjective: Spoke with patient, his , and son at length. Patient's has concerns about her ability to care for patient at home. Patient now alert & oriented. He acknowledges prior delirium. Pt seen by Hospitalist for delirium and hypotension; they recommended minimizing pain meds and using BP hold parameters. Objective: RLE: dressing c/d/i NVID Assessment: POD 3 R TKA Plan: - Eliquis - PT OOB, ROM, strengthening - BP med hold parameters - Minimize narcotics - Dispo planning. Patient had been scheduled for d/c home with outpatient PT. Family now wants to consider other options. Will discuss with case management in the AM. <Jermaine Andersen - Last Filed: 11/03/17 16:53>
[2017-11-02] MEDS: Tamsulosin CAP* 0.4 MG PO SCH (17:54)
[2017-11-02] MEDS: Atorvastatin* 20 MG TAB PO SCH (17:54)
[2017-11-02] MEDS: Acetaminophen TAB* 325 MG PO PRN (22:33)
[2017-11-03] MEDS: oxyCODONE/Acetamin 5/325 MG* TAB PO PRN (01:55)
[2017-11-03] MEDS: Levothyroxine TAB* 150 MCG TAB PO SCH (05:13)
[2017-11-03 05:30] LABS: Hematocrit 24 % (42-52); Hemoglobin 8.4 g/dl (14.0-18.0); Mean Platelet Volume 7.7 um3 (7.4-10.4); Platelet Count 162 10^3/ul (150-450)
--- NOTE | 2017-11-03 09:43 | PN ---
Progress Note - Progress Note Date of Service: 11/03/17 SOAP: Subjective: Pt states that he is doing well. He states he is paranoid this morning. He had an episode of confusion this am. His pain is controlled. He denies N/T, F/ C, CP/SOB. He remains hypotensive Objective: PE: 82 y/o WDWN M, A&O x3, sitting comfortably in chair RLE: dressing changed, inc healing well with no sign of infection, +DF/PF ankle , calf soft NT, +2 DP pulse, SILT distally Vital Signs Temp Pulse Resp BP Pulse Ox 98.8 F 88 18 104/60 93 11/03/17 07:38 11/03/17 07:38 11/03/17 07:38 11/03/17 08:06 11/03/17 07:38 Laboratory Results - last 24 hr 11/03/17 05:09 Hgb 8.4 L Hct 24 L Plt Count 162 MPV 7.7 Assessment: 1. 82 y/o male s/p R TKA by Dr. Andersen 10/31. POD 3 2. Hypotension 3. Acute delirium Plan: - DVT prophylaxis- Eliquis - Continue PT/ OT - Follow up with Dr. Andersen within 10-14 days - H&H decreased, may be dilutional, cont monitor - Hosp consult for eval of acute delirium and hypotension - Plan D/C to home when medically stable, may need RIP d/t balance issues
[2017-11-03] MEDS ORDERED: Hydrochlorothiazide TAB* 25 MG PO SCH (09:59)
[2017-11-03] MEDS ORDERED: Tamsulosin CAP* 0.4 MG PO SCH (09:59)
[2017-11-03] MEDS: Losartan TAB* 25 MG PO SCH (10:22)
[2017-11-03] MEDS: Propranolol LA CAP* 120 MG PO SCH (10:22)
[2017-11-03] MEDS: Hydrochlorothiazide TAB* 25 MG PO SCH (10:30)
[2017-11-03] MEDS: Vitamin THERAPEUTIC TAB PO SCH (10:37)
[2017-11-03] MEDS: Omeprazole CAP* 20 MG PO SCH (10:37)
[2017-11-03] MEDS: Apixaban* 2.5 MG TAB PO SCH ×2 (10:37→19:48)
[2017-11-03] MEDS: Docusate CAP* 100 MG PO SCH ×2 (10:37→19:44)
[2017-11-03] MEDS: Magnesium Hydroxide LIQ* 30 ML UDC PO SCH ×2 (10:38→19:44)
[2017-11-03 10:49] LABS: ABS Basophils 0 10^3/ul (0-0.2); ABS Eosinophils 0.1 10^3/ul (0-0.6); ABS Monocytes 1.1 10^3/ul (0-0.8); ABS Neutrophils 7.1 10^3/ul (1.5-7.7); ABS Nucleated RBC 0 10^3/ul; Eosinophil % 0.8 % (0-6); Hematocrit 26 % (42-52); Hemoglobin 9.2 g/dl (14.0-18.0); Lymphocyte % 10.3 % (25-47); Mean Corpuscular HGB Conc 35 g/dl (31-36); Mean Corpuscular Hemoglobin 36 pg (27-31); Mean Corpuscular Volume 102 fL (80-94); Mean Platelet Volume 7.5 um3 (7.4-10.4); Nucleated Red Blood Cells % 0.1; Platelet Count 183 10^3/ul (150-450); Red Blood Count 2.56 10^6/ul (4.0-5.4); Red Cell Distribution Width 13 % (10.5-15); White Blood Count 9.3 10^3/ul (3.5-10.8)
[2017-11-03 11:02] LABS: EGFR Non-African American 58.5 (>60)
[2017-11-03] MEDS: Acetaminophen TAB* 325 MG PO PRN ×2 (11:02→18:26)
[2017-11-03 11:36] LABS: Urine Appearance Clear; Urine Blood 1+ (Negative); Urine Color Straw; Urine Ketones Negative (Negative); Urine Protein Negative (Negative); Urine Specific Gravity 1.005 (1.010-1.030); Urine Urobilinogen Negative (Negative)
--- NOTE | 2017-11-03 12:21 | CONS ---
CC: Dr. Jermaine Andersen; Dr. Nancy Patten* CONSULTATION REPORT: DATE OF CONSULT: 11/03/2017. CONSULTING PROVIDER: Dr. Jermaine Andersen. MY ATTENDING WHILE IN THE HOSPITAL: Dr. Nancy Patten. REASON FOR CONSULT: Co-management of comorbid medical conditions, delirium, hypotension. HISTORY OF PRESENT ILLNESS: Mr. Bose is an 82-year-old male with past medical history significant for hypertension, hyperlipidemia, hypothyroidism, GERD, and osteoarthritis, who is postop day #3 from a right total knee placement. The patient's postoperative course to this point has been relatively uneventful except for several episodes of not symptomatic hypotension. However, last night, the patient became acutely confused and paranoid, not knowing where he was, believing that he was being held against his will. He was able to take off his gown, which had a personal alarm attached to it and wandered in the hallway without any clothes on. This resolved after the patient's family arrived and he was able to be re- oriented at that point. The patient has had been having increased difficulty with his short-term memory, forgetting names and dates but not so much that is affecting his daily function. The patient did not have episode like this after his most recent surgery which was last April. The patient has not felt dizzy or had any chest pain or palpitations. Yesterday, in the bathroom, the patient was not using his walker and stepped on his postsurgical leg, lost his balance and had to hold on to his for stabilization. The patient also has not had a very good appetite or oral intake since he has been in the hospital. The patient's appetite is good outside the hospital and has not lost any recent weight. The patient has a chronic tremor, for which he is on propranolol and which has been improving recently. The patient is much better than normally he is at this time. The patient states that he only drinks approximately 1 glass of wine a day and drink occasional hard liquor, but he has not been on this for several weeks. This was corroborated by his spouse. The patient has never had any issues with alcohol withdrawal in the past. The patient does not have any fevers, chills, nausea, or vomiting. The patient has been having issues with ongoing reflux. PAST MEDICAL HISTORY: Hypertension; hyperlipidemia; hypothyroidism; GERD; staph infection of the spine in 2001 and 2004, treated with Bactrim. PAST SURGICAL HISTORY: Total left shoulder arthroplasty 6 years ago, surgical decompression of L2 through L5, TURP, carpal tunnel release bilaterally, left shoulder arthroplasty, melanoma resection, left total reverse in 2017. ALLERGIES: No known drug allergies. SOCIAL HISTORY: The patient occasionally smokes cigar and alcohol use approximately 1 glass of wine a day and occasional hard liquor, none for 2 weeks. No illegal drug use. The patient lives with his spouse. The patient has a strong family support system. The patient's spouse is his surrogate decision maker. PHYSICAL EXAM: General: Mr. Bose is an 82-year-old male, who appears stated age and sitting comfortably in bed, in no acute distress. Vital Signs: Temperature 98.8, pulse 88, respiratory rate 18, oxygen saturation 93% on room air, and blood pressure 88/66 most recently increased to 104/60. HEENT: Head normocephalic, atraumatic. Sclerae anicteric. No conjunctival injection. Nasal mucosa moist. Oral mucosa moist. No pharyngeal erythema, discharge, or exudate. Neck: Supple, nontender. No lymphadenopathy. No carotid bruits auscultated. Cardiac: Regular rate and rhythm. No clicks, murmurs, gallops, or rubs. Pulses are 2+ in the bilateral dorsalis pedis, posterior tibial, and radial areas. 1+ edema noted in the right lower extremity. No calf tenderness bilaterally. Respiratory: Clear to auscultation bilaterally. No wheezes, rales , or rhonchi. Good air exchange bilaterally. Abdomen: Soft, nontender, nondistended. Bowel sounds are present and normoactive in all 4 quadrants. No hepatosplenomegaly. No abdominal bruits auscultated. Genitourinary: No suprapubic or CVA tenderness. Skin: Clean, dry, and intact. No rash except for surgical incision on right knee, which shows no signs of infection and is covered by a bulky dressing. No hematoma or ecchymosis. Neuro: Cranial nerves II through XII intact. Strength 5/5 in the bilateral upper extremities. Sensation to light touch intact in bilateral upper extremities. Strength 4/5 in the left lower extremity. Strength 3/5 in the right lower extremity, limited by pain. Reflexes 1+ in bilateral biceps and Achilles areas. Babinski' s downgoing bilaterally. Psychiatric: Pleasant and cooperative. DIAGNOSTIC STUDIES/LAB DATA: From today, hemoglobin 8.4, hematocrit 24. Studies: None. ASSESSMENT AND PLAN: Impression: Mr. Bose is an 82-year-old male with a past medical history significant for hypertension, hyperlipidemia, and hypothyroidism, who is status post right total knee replacement. The patient's postoperative course is complicated by hypotension and delirium. The patient will be started on fluids and is currently reoriented at this time. This delirium is likely hospital induced. 1. Delirium: The patient's paranoia and confusion associated with being unfamiliar surroundings in the postoperative setting in a patient with fluctuating mental state, no neurological deficits, no signs of infection, whose confusion disappeared upon reorientation with his family, likely represents hospital-induced delirium. This has been discussed with the family. They will stay overnight tonight to help regarding the patient if he becomes confused again. It was discussed that there is no discrete treatment medications which the patient might take that would exacerbate. This has been discussed with the patient and the family and they understood while the symptoms of postoperative pain have to be controlled that opiates, Benadryl, antispasmodics are also associated with worsening of hospital delirium and that they should be used as little as possible and that Tylenol should be requested to see if it controls pain before opiate pain medications given with regularity. The patient and the family understood, they also understood the importance of early mobilization status post his left total knee replacement. CBC and BMP are pending. In the setting of neurological deficits, there is no indication for imaging of the brain at this point. The patient to follow up with his primary care provider outpatient for management of his cognitive decline. 2. Hypotension. The patient has hypotension. Postoperatively, his hemoglobin and hematocrit has been declining significantly. We will continue to monitor this. However, received bolus of fluids yesterday, which may be contributing to his dilution into his anemia. The patient is asymptomatic from his hypotension. The patient's almost fall did not seem to be presyncope related to hypotension. Continue the patient's fluids at 175 mL an hour as ordered. Hold parameters in place on all of the patient's blood pressure lowering medications. 3. Hyperlipidemia. Continue atorvastatin. 4. Status post right total knee replacement. Management per primary team. The patient has had a bowel movement and is urinating well. The patient's pain is controlled. This has been discussed with the patient and he has agreed to continue with pain control without using excessive opioids. 5. Gastroesophageal reflux disease. Continue omeprazole. 6. Hypothyroidism. Continue levothyroxine. 7. DVT prophylaxis. Continue apixaban. 8. FEN. The patient will have regular unrestricted diet and fluids as above. 9. Code status. The patient would like to be a full code. The patient's surrogate decision maker is his . TIME SPENT: Approximately 60 minutes was spent on this consultation, 30 of which was spent [id number] with the patient obtaining history and physical and discussing the treatment plan. This plan has been discussed with my attending, Dr. Nancy Patten, and she is in agreement. Thank you very much for this consult. MYA CORMIER [id number]/[facility] #: [id number]
[2017-11-03] MEDS: Atorvastatin* 20 MG TAB PO SCH (18:26)
[2017-11-03] MEDS ORDERED: Melatonin (NF) ** ENTER STRENGTH IN LABEL DIRECTIONS PO PRN (21:00)
[2017-11-04] MEDS: Acetaminophen TAB* 325 MG PO PRN (05:43)
[2017-11-04] MEDS: Levothyroxine TAB* 150 MCG TAB PO SCH (05:43)
[2017-11-04 05:47] LABS: Hematocrit 26 % (42-52); Hemoglobin 9.5 g/dl (14.0-18.0); Mean Platelet Volume 7.7 um3 (7.4-10.4); Platelet Count 220 10^3/ul (150-450)
[2017-11-04 07:35] VITALS: BP 142/72
[2017-11-04] MEDS: Omeprazole CAP* 20 MG PO SCH (07:39)
[2017-11-04] MEDS: Losartan TAB* 25 MG PO SCH (08:55)
[2017-11-04] MEDS: Docusate CAP* 100 MG PO SCH (08:55)
[2017-11-04] MEDS: Apixaban* 2.5 MG TAB PO SCH (08:55)
[2017-11-04] MEDS: Propranolol LA CAP* 120 MG PO SCH (08:55)
[2017-11-04] MEDS: Vitamin THERAPEUTIC TAB PO SCH (08:55)
[2017-11-04] MEDS: Magnesium Hydroxide LIQ* 30 ML UDC PO SCH (08:57)
--- NOTE | 2017-11-04 09:01 | PN ---
Progress Note - Progress Note Date of Service: 11/04/17 SOAP: Subjective: Pt is doing well. Pain controlled. No F/C, CP/SOB, calf pain. Objective: PE: 82 y/o WDWN M NAD, A&Ox3 RLE- dressing c/d/i, calf soft NT, +ankle PF/DF, +2 DP pulse, NVI Vital Signs Temp Pulse Resp BP Pulse Ox 97.8 F 99 18 142/72 97 11/04/17 07:29 11/04/17 07:29 11/04/17 08:54 11/04/17 07:29 11/04/17 07:29 Laboratory Results - last 24 hr 11/03/17 11/03/17 11/03/17 10:00 10:33 10:33 WBC 9.3 RBC 2.56 L Hgb 9.2 L Hct 26 L MCV 102 H MCH 36 H MCHC 35 RDW 13 Plt Count 183 MPV 7.5 Neut % (Auto) 76.2 Lymph % (Auto) 10.3 L [place] % (Auto) 12.3 H Eos % (Auto) 0.8 Baso % (Auto) 0.4 Absolute Neuts (auto) 7.1 Absolute Lymphs (auto) 1.0 Absolute Monos (auto) 1.1 H Absolute Eos (auto) 0.1 Absolute Basos (auto) 0 Absolute Nucleated RBC 0 Nucleated RBC % 0.1 Sodium 132 L Potassium 4.2 Chloride 97 L Carbon Dioxide 28 Anion Gap 7 BUN 19 Creatinine 1.19 H Est GFR ( Amer) 75.3 Est GFR (Non-Af Amer) 58.5 BUN/Creatinine Ratio 16.0 Glucose 130 H Calcium 8.6 Magnesium 1.9 Urine Color Straw Urine Appearance Clear Urine pH 6.0 Ur Specific [place] [employer] 1.005 L Urine Protein Negative Urine Ketones Negative Urine Blood 1+ A Urine Nitrate Negative Urine Bilirubin Negative Urine Urobilinogen Negative Ur Leukocyte Esterase Negative Urine WBC (Auto) Absent Urine RBC (Auto) Trace(0-2/hpf) Urine Bacteria 1+ A Urine Glucose Negative 11/04/17 05:00 WBC RBC Hgb 9.5 L Hct 26 L MCV MCH MCHC RDW Plt Count 220 MPV 7.7 Neut % (Auto) Lymph % (Auto) [place] % (Auto) Eos % (Auto) Baso % (Auto) Absolute Neuts (auto) Absolute Lymphs (auto) Absolute Monos (auto) Absolute Eos (auto) Absolute Basos (auto) Absolute Nucleated RBC Nucleated RBC % Sodium Potassium Chloride Carbon Dioxide Anion Gap BUN Creatinine Est GFR ( Amer) Est GFR (Non-Af Amer) BUN/Creatinine Ratio Glucose Calcium Magnesium Urine Color Urine Appearance Urine pH Ur Specific [place] [employer] Urine Protein Urine Ketones Urine Blood Urine Nitrate Urine Bilirubin Urine Urobilinogen Ur Leukocyte Esterase Urine WBC (Auto) Urine RBC (Auto) Urine Bacteria Urine Glucose Assessment: 1. 82 y/o male s/p R TKA by Dr. Andersen 10/31. POD 4 2. Hypotension- improved 3. Acute delirium- improved Plan: - hypotension and delirium improved. Doing well with PT and stable for DC to home today -DVT prophylaxis- Cont Eliquis -cont tylenol and oxycodone for pain -Colace for constipation - Continue PT/ OT. Will start outpt PT PIPPA - Follow up with Dr. Andersen within 10-14 days -BP normalized restart all home BP medications -F/U with PCP within 1 week to recheck BP and eval for memory loss
--- NOTE | 2017-11-04 11:10 | DS ---
DISCHARGE SUMMARY: DATE OF ADMISSION: 10/31/17 DATE OF DISCHARGE: 11/04/17 PROVIDER: Jermaine Andersen MD* (dictated by MYA Chance). ADMITTING DIAGNOSIS: Status post right total knee replacement for right knee osteoarthritis. SECONDARY DIAGNOSES: 1. Hypertension. 2. Hyperlipidemia. 3. Hypothyroidism. 4. Gastroesophageal reflux disease. CONSULTATIONS: Physical Therapy, Occupational Therapy, and Medicine. HISTORY OF PRESENT ILLNESS: Mr. Bose is an 82-year-old male, who presents to the clinic for end-stage right knee osteoarthritis. He failed conservative measures. Therefore, agreed to undergo a right total knee replacement with Dr. Andersen on 10/31/17. HOSPITAL COURSE: Mr. Bose was admitted to [facility] on 10/31/17. He underwent a right total knee arthroplasty. Postoperatively, he recovered on the short stay surgical unit. On postop day 1, his Siddiqi catheter was removed. He was able to urinate on his own. He advanced to a regular diet without difficulty and his pain was controlled with oral pain medications. He was restarted on his home medications. His labs and vitals remain stable. He is able to weight bear as tolerated on the right lower extremity. He advanced appropriately with physical therapy and occupational therapy. DVT prophylaxis was managed with Eliquis. He did have an episode of hypotension. His hypertension meds were stopped and improved and had acute delirium post anesthesia. However, he improved cognitively and by postop day 4, he was orthopedically and medically stable to discharge to home. PHYSICAL EXAMINATION: General: An 82-year-old, well-developed, well-nourished male, in no acute distress, alert and oriented x3. Appropriate mood and affect. Appropriate balance and coordination of the lower extremities. Vital Signs: Temperature 97.8, heart rate 99, respiratory rate 16, O2 sat 97%, blood pressure 142/72. Right lower extremity: The dressing is clean, dry, and intact. The calf is soft and nontender. Positive ankle dorsiflexion and plantar flexion. +2 DP pulse. Sensation intact to light touch distally. DISCHARGE CONDITION: Stable. DISCHARGE MEDICATIONS: Home medications continued on discharge to include: 1. Folic acid 1 by mouth in the morning. 2. Cyanocobalamin 500 mcg 2 tabs by mouth in the morning. 3. Hydrochlorothiazide 12.5 mg in the morning. 4. Simvastatin 20 mg tablets 2 by mouth at night. 5. Omeprazole 20 mg 1 by mouth in the morning. 6. Levothyroxine 150 mcg 1 by mouth in the morning. 7. Naproxen sodium 220 mg, 500 by mouth twice a day as needed. 8. Tamsulosin 0.4 mg 1 by mouth in the morning. 9. Propranolol 120 mg by mouth in the morning. 10. Losartan 50 mg by mouth in the morning. 11. Arlene-D 1 by mouth in the evening. 12. Tylenol 325 two tabs every 6 hours as needed. New medications on discharge: 1. Eliquis 2.5 mg 1 by mouth twice a day for DVT prophylaxis. 2. Oxycodone 5 mg 1 by mouth every 6 hours as needed for pain. DISCHARGE INSTRUCTIONS: The patient will continue to be weightbearing as tolerated. Okay for him to shower, but no submerging the wound in water. He should use gentle soap and pat dry. Cover with gauze and Aramis. Should call the orthopedic office with increased drainage, redness, increased pain or fever, and go to the ER with chest pain, shortness of breath, or palpitations. Regular diet. He should use Colace while on narcotics to prevent constipation. He should continue all of his home blood pressure medications as prescribed and he should continue PT and OT exercises as shown and will start outpatient physical therapy as soon as possible. He will take Eliquis 2.5 mg every 12 hours for 4 weeks for DVT prophylaxis. He should avoid ibuprofen, Aleve, and aspirin while on Eliquis. He will continue Tylenol and oxycodone for the pain. He will follow up with Dr. Andersen within 2 weeks. At that appointment, christine will be removed. He should also follow up with his primary care physician within a week for recheck of his blood pressure. MYA CHANCE [id number]/[facility] #: [id number] MTDD
== END 2017-11-04 10:00 | disposition home or self-care (01) | DRG 470 ==
LOC: AA 06:59 → SSU 13:23
PROVIDERS: ADMIT Orthopaedic Surgery; ATTEND Orthopaedic Surgery
PROC: 0SRC0J9 Replacement of Right Knee Joint with Synthetic Substitute, Cemented, Open Approach (ICD-10-PCS; principal; 2017-10-31 08:30)
DX: M17.11 Unilateral primary osteoarthritis, right knee (principal); M25.761 Osteophyte, right knee; I95.9 Hypotension, unspecified; E03.9 Hypothyroidism, unspecified; K21.9 Gastro-esophageal reflux disease without esophagitis; I10 Essential (primary) hypertension; R41.0 Disorientation, unspecified; I73.9 Peripheral vascular disease, unspecified; Z88.8 Allergy status to other drugs, medicaments and biological substances; Z79.2 Long term (current) use of antibiotics; Z79.899 Other long term (current) drug therapy
CPT/HCPCS: 36415; 80048; 81003; 81015; 83735; 85014; 85018; 85025; 85049; 87086; 88305; 88311; A9270-GY; C1776; G8978-GP-CI; G8978-GP-CJ; G8978-GP-CK; G8979-GP-CI; G8987-GO-CK; G8988-GO-CI; J0690; J1100; J1170; J2250; J2405; J2704; J2795; J3010

== ENCOUNTER 2019-07-23 08:35 | Day surgery (SDC) | payer MEDICARE, OTHER ==
[~2019-07-23 08:35] MED LIST changes: -Buffered Lidocaine 0.9% SYRIN* 5 ML/SYR SYRINGE INTRADERM ONE; +Buffered Lidocaine 1% SYRIN* 1 ML/SYRINGE INTRADERM ONE
[2019-07-23] MEDS ORDERED: Proparacaine 0.5% OPHTH.SOL* 15 ML BTL ONE (08:59)
[2019-07-23] MEDS ORDERED: Cyclopentolate 1% OPTH.SOL* 2 ML BTL ONE (08:59)
[2019-07-23] MEDS ORDERED: Lidocaine 1% MPF ** 5 ML VIAL ONE (08:59)
[2019-07-23] MEDS ORDERED: Ketorolac 0.5% OPHTH (NF) 0.5 % 5 ML BTL ONE (08:59)
[2019-07-23] MEDS ORDERED: Phenylephrine OPHTH SOL 2.5%* 2 ML ONE (08:59)
[2019-07-23] MEDS ORDERED: acetaZOLAMIDE TAB* 250 MG ONE (08:59)
[2019-07-23] MEDS ORDERED: Povidone Iodine 5% OPTH* 30 ML BTL ONE (08:59)
[2019-07-23] MEDS ORDERED: Neomycin/Polymy/Dex OPTH.SUSP* MAXITROL 0.1% 5 ML ONE (08:59)
[2019-07-23] MEDS ORDERED: Lidocaine 2% w/ EPI 1:200,000* 20 ML SDV VIAL ONE (08:59)
[2019-07-23 11:42] VITALS: BP 130/60
--- NOTE | 2019-07-23 15:24 | OP ---
DATE OF OPERATION: 07/23/2019 - [facility] DATE OF : 1935. SURGEON: Darius Grier M.D. PREOPERATIVE DIAGNOSIS: Cataract right eye. POSTOPERATIVE DIAGNOSIS: Cataract right eye. OPERATIVE PROCEDURE: Extracapsular cataract extraction with intraocular lens implant right eye. DESCRIPTION OF PROCEDURE: The patient was brought to the operating room after being given 1/2% Alcaine with epinephrine drops in the preoperative area. The eye was prepped and draped in the usual sterile fashion. Sterile drape and eyelid speculum were placed. Again, topical 1/2% Alcaine with epinephrine was given. A paracentesis incision was made at the 9 o'clock position with the No.75 blade. Clear cornea incision 2.2 x 2.2-mm was created at the 12 o'clock position starting at the anterior limbus using the 2.2-mm keratome. The anterior chamber was irrigated with 0.4 mL of 1% non-preservative intracameral lidocaine and filled with DisCoVisc. A capsulorrhexis was completed using the cystotome and the Utrata forceps. Hydrodissection was performed with balanced salt solution. The lens nucleus was removed with the Phacoemulsification handpiece without incident. Cortex was removed with the irrigation-aspiration handpiece. The capsular bag was re-inflated using DisCoVisc and an [id number] implant was inserted with the shooter. The irrigation-aspiration handpiece was used to remove all residual DisCoVisc. The eye was refilled with balanced salt solution and the wound checked and found to be watertight. Topical Maxitrol drops were given. [id number]/[facility] #: [id number] [facility]
[2019-07-24] MEDS ORDERED: Acetaminophen TAB* 325 MG PO PRN (05:00)
== END 2019-07-23 11:38 | disposition home or self-care (01) ==
LOC: OREAST 08:35
PROVIDERS: ATTEND Specialist
DX: H25.811 Combined forms of age-related cataract, right eye (principal); H04.123 Dry eye syndrome of bilateral lacrimal glands; E03.9 Hypothyroidism, unspecified; E78.00 Pure hypercholesterolemia, unspecified; I10 Essential (primary) hypertension; E78.5 Hyperlipidemia, unspecified; F17.290 Nicotine dependence, other tobacco product, uncomplicated; M19.90 Unspecified osteoarthritis, unspecified site; J30.89 Other allergic rhinitis
CPT/HCPCS: A9270-GY; V2632

== ENCOUNTER 2019-07-30 09:41 | Day surgery (SDC) | payer MEDICARE, OTHER ==
[~2019-07-30 09:41] MED LIST changes: +Acetaminophen TAB* 325 MG PO PRN
[2019-07-30] MEDS ORDERED: Midazolam* 1 MG/ML 2 ML VIAL (2 MG) ONE (11:19)
[2019-07-30 13:17] VITALS: BP 140/66
--- NOTE | 2019-07-30 13:25 | OP ---
DATE OF OPERATION: 07/30/2019. DATE OF : 1935. SURGEON: Darius Grier M.D. PREOPERATIVE DIAGNOSIS: Cataract left eye. POSTOPERATIVE DIAGNOSIS: Cataract left eye. OPERATIVE PROCEDURE: Extracapsular cataract extraction with intraocular lens implant left eye. PROCEDURE: The patient was brought to the operating room after being given 1/2% Alcaine with epineph rine drops in the preoperative area. The eye was prepped and draped in the usual sterile fashion. S terile drape and eyelid speculum were placed. Again, topical 1/2% Alcaine with epinephrine was given . A paracentesis incision was made at the 3 o'clock position with the No.75 blade. Clear cornea inc ision 2.2 x 2.2-mm was created at the 6 o'clock position starting at the anterior limbus using the 2. 2-mm keratome. The anterior chamber was irrigated with 0.4 mL of 1% non-preservative intracameral li docaine and filled with DisCoVisc. A capsulorrhexis was completed using the cystotome and the Utrata forceps. Hydrodissection was performed with balanced salt solution. The lens nucleus was removed wi th the Phacoemulsification handpiece without incident. Cortex was removed with the irrigation-aspira tion handpiece. The capsular bag was re-inflated using DisCoVisc and an [id number] implant was insert ed with the shooter. The irrigation-aspiration handpiece was used to remove all residual DisCoVisc. The eye was refilled with balanced salt solution and the wound checked and found to be watertight. Topical Maxitrol drops were given. [id number]/[facility] #: [id number]
[2019-07-30] MEDS ORDERED: acetaZOLAMIDE TAB* 250 MG ONE (15:06)
[2019-07-30] MEDS ORDERED: Povidone Iodine 5% OPTH* 30 ML BTL ONE (15:06)
[2019-07-30] MEDS ORDERED: Lidocaine 2% w/ EPI 1:200,000* 20 ML SDV VIAL ONE (15:06)
[2019-07-30] MEDS ORDERED: Ketorolac 0.5% OPHTH (NF) 0.5 % 5 ML BTL ONE (15:06)
[2019-07-30] MEDS ORDERED: Phenylephrine OPHTH SOL 2.5%* 2 ML ONE (15:06)
[2019-07-30] MEDS ORDERED: Neomycin/Polymy/Dex OPTH.SUSP* MAXITROL 0.1% 5 ML ONE (15:06)
[2019-07-30] MEDS ORDERED: Lidocaine 1% MPF ** 5 ML VIAL ONE (15:06)
[2019-07-30] MEDS ORDERED: Cyclopentolate 1% OPTH.SOL* 2 ML BTL ONE (15:06)
[2019-07-30] MEDS ORDERED: Proparacaine 0.5% OPHTH.SOL* 15 ML BTL ONE (15:07)
== END 2019-07-30 12:35 | disposition home or self-care (01) ==
LOC: OREAST 09:41
PROVIDERS: ATTEND Specialist
DX: H25.812 Combined forms of age-related cataract, left eye (principal); H04.123 Dry eye syndrome of bilateral lacrimal glands; E03.9 Hypothyroidism, unspecified; E78.00 Pure hypercholesterolemia, unspecified; K21.9 Gastro-esophageal reflux disease without esophagitis; I10 Essential (primary) hypertension; Z85.828 Personal history of other malignant neoplasm of skin
CPT/HCPCS: A9270-GY; J2250; V2632